=== PATIENT | female | born 1945 | race Caucasian/White ===

== ENCOUNTER 2019-07-14 07:52 | Outpatient (CLI) | payer MEDICARE, BC | END 2019-07-14 23:59 | disposition home or self-care (01) | LOC: CFH 07:52 | PROVIDERS: ATTEND Family Medicine | DX: N60.02 Solitary cyst of left breast (principal) | CPT/HCPCS: 76642; 77066 ==

== ENCOUNTER 2019-07-28 08:24 | Outpatient (CLI) | payer MEDICARE, BC ==
[2019-07-28] MEDS ORDERED: LIDOCAINE 1%-EPI 1:100K, 20ML ONE (09:00)
[2019-07-28] MEDS ORDERED: LIDOCAINE 1%, 20ML ONE (09:00)
[2019-07-28] MEDS ORDERED: SODIUM BICARBONATE 4.2%, 5ML ONE (09:00)
== END 2019-07-28 23:59 | disposition home or self-care (01) ==
LOC: CFH 08:24
PROVIDERS: ATTEND Family Medicine
DX: N63.11 Unspecified lump in the right breast, upper outer quadrant (principal); C50.911 Malignant neoplasm of unspecified site of right female breast; N60.02 Solitary cyst of left breast; Z17.0 Estrogen receptor positive status [ER+]
CPT/HCPCS: 19000; 19083; 76942; 77065; 88305; 88360; 88361; J3490; 19285

== ENCOUNTER 2019-08-24 12:41 | Outpatient (CLI) | payer MEDICARE, BC ==
[2019-08-24] MEDS ORDERED: FLUO10TA PO (13:17)
[2019-08-24] MEDS ORDERED: ATOR10TA9 PO (13:17)
[2019-08-24] MEDS ORDERED: METO-93 PO (13:17)
[2019-08-24] MEDS ORDERED: LOSA25TA25 PO (13:17)
[2019-08-24] MEDS ORDERED: ASPI-496 PO (13:17)
[2019-08-24 14:02] LABS: ALBUMIN 3.9 g/dL (3.4-5.0); ANION GAP 7 mmol/L (5-15); CHLORIDE 107 mmol/L (98-107)
[2019-08-24 14:06] LABS: ALANINE AMINOTRANSFERASE 23 U/L (12-78); ALKALINE PHOSPHATASE 125 U/L (45-117); BILIRUBIN,TOTAL 0.5 mg/dL (0.2-1.0); CREATININE 0.94 mg/dL (0.55-1.02); TOTAL PROTEIN 7.7 g/dL (6.4-8.2)
== END 2019-08-24 23:59 | disposition home or self-care (01) ==
LOC: STAR 12:41
PROVIDERS: ATTEND Surgery
DX: Z01.818 Encounter for other preprocedural examination (principal); C77.3 Secondary and unspecified malignant neoplasm of axilla and upper limb lymph nodes
CPT/HCPCS: 36415; 80053; 93005

== ENCOUNTER 2019-08-28 11:32 | Day surgery (SDC) | payer MEDICARE, BC ==
[~2019-08-28] VITALS: Ht 167.6 cm; Wt 114.3 kg
[~2019-08-28 11:32] MED LIST: ASPI-496 PO; ATOR10TA9 PO; BUPIVACAINE/PF 0.5% ONE; EPINEPHRINE 1 MG/ML, 1ML ONE; FLUO10TA PO; ISOSULFAN BLUE 10 MG/ML, 5ML IV ONE; LOSA25TA25 PO; METO-93 PO
[2019-08-28] MEDS ORDERED: LACTATED RINGERS 1,000 ML IV SCH (12:11)
[2019-08-28 12:16] VITALS: BP 147/88
[2019-08-28] MEDS ORDERED: SCOPOLAMINE PATCH, 1.5MG PATCH.TD72 TD ONE (12:30)
[2019-08-28] MEDS ORDERED: ACETAMINOPHEN 500 MG TABLET PO ONE (12:30)
[2019-08-28] MEDS ORDERED: MIDAZOLAM 1 MG/ML, 2ML ONE (12:49)
[2019-08-28] MEDS ORDERED: FENTANYL PF 250 MCG/5ML ONE (12:50)
[2019-08-28] MEDS ORDERED: PROPOFOL 10 MG/ML, 20ML ONE (12:51)
[2019-08-28] MEDS ORDERED: DEXAMETHASONE 4 MG/ML, 1ML ONE ×2 (12:51→13:20)
[2019-08-28] MEDS ORDERED: ROCURONIUM 10MG/ML,5ML ONE (12:51)
[2019-08-28] MEDS ORDERED: CEFAZOLIN 1,000 MG ONE ×2 (12:51→13:20)
[2019-08-28] MEDS ORDERED: SUCCINYLCHOLINE 20 MG/ML, 10ML ONE (12:53)
[2019-08-28] MEDS ORDERED: DIPHENHYDRAMINE 50 MG/ML, 1ML ONE ×2 (12:53→13:44)
[2019-08-28] MEDS ORDERED: SUGAMMADEX 200 MG/2 ML IVPush ONE (13:20)
[2019-08-28] MEDS ORDERED: OXYcodone 5 MG/5 ML ORAL.SOL UDC PO PRN (13:30)
[2019-08-28] MEDS ORDERED: FENTANYL PF 100 MCG/2ML IV PRN (13:30)
[2019-08-28] MEDS ORDERED: DIAZEPAM 5 MG/ML, 2ML IVPush PRN (13:30)
[2019-08-28] MEDS ORDERED: HYDROmorphone 2 MG/ML, 1ML IVPush PRN (13:30)
[2019-08-28] MEDS ORDERED: ALBUTEROL SULFATE 2.5 MG/3 ML NPPB PRN (13:30)
[2019-08-28] MEDS ORDERED: ONDANSETRON ODT 8 MG PO PRN (13:30)
[2019-08-28] MEDS ORDERED: HALOPERIDOL 5 MG/ML IV PRN (13:30)
[2019-08-28] MEDS ORDERED: LABETALOL 5MG/ML, 20ML IV PRN (13:30)
[2019-08-28] MEDS ORDERED: EPHEDRINE 50 MG/ML, 1ML IVPush PRN (13:30)
[2019-08-28] MEDS ORDERED: PROMETHAZINE 25 MG/ML, 1ML IV PRN (13:30)
[2019-08-28] MEDS ORDERED: ONDANSETRON 2MG/ML, 2ML IV PRN (13:30)
[2019-08-28] MEDS ORDERED: PROMETHAZINE 12.5 MG SUPP PR PRN (13:30)
[2019-08-28] MEDS ORDERED: MEPERIDINE/PF 25MG/ML,1ML IVPush PRN (13:30)
[2019-08-28] MEDS ORDERED: hydrALAzine 20 MG/ML, 1ML IV PRN (13:30)
[2019-08-28] MEDS ORDERED: MIDAZOLAM 1 MG/ML, 2ML IV PRN (13:30)
[2019-08-28] MEDS ORDERED: ONDANSETRON 2MG/ML, 2ML ONE (13:31)
== END 2019-08-28 16:50 | disposition home or self-care (01) ==
LOC: SDC 11:32 → EDSTATUS 14:30 → OUT 16:50
PROVIDERS: ATTEND Surgery
DX: C50.411 Malignant neoplasm of upper-outer quadrant of right female breast (principal); E66.9 Obesity, unspecified; E78.5 Hyperlipidemia, unspecified; I10 Essential (primary) hypertension; Z79.890 Hormone replacement therapy; Z98.890 Other specified postprocedural states; Z17.0 Estrogen receptor positive status [ER+]; Z68.41 Body mass index [BMI] 40.0-44.9, adult; Z88.8 Allergy status to other drugs, medicaments and biological substances
CPT/HCPCS: 19301; 38525; 38792; 76098; 88307; 88329; A9541; J0171; J0330; J0690; J1100; J1200; J2250; J2405; J2704; J3010

== ENCOUNTER → 2019-09-15 | Outpatient (CLI) | payer MEDICARE, BC ==
[~2019-09-15] MED LIST changes: -BUPIVACAINE/PF 0.5% ONE; -EPINEPHRINE 1 MG/ML, 1ML ONE; -ISOSULFAN BLUE 10 MG/ML, 5ML IV ONE
== END | disposition home or self-care (01) ==
LOC: ROC 07:58
PROVIDERS: ATTEND Radiology Radiation Oncology
DX: Z08 Encounter for follow-up examination after completed treatment for malignant neoplasm (principal); C50.411 Malignant neoplasm of upper-outer quadrant of right female breast; I10 Essential (primary) hypertension; E78.5 Hyperlipidemia, unspecified; E66.9 Obesity, unspecified; Z17.0 Estrogen receptor positive status [ER+]
CPT/HCPCS: G0463

== ENCOUNTER 2019-12-13 08:14 | Outpatient (CLI) | payer MEDICARE, BC | END 2019-12-13 23:59 | disposition home or self-care (01) | LOC: ROC 08:14 | PROVIDERS: ATTEND Radiology Radiation Oncology | DX: Z08 Encounter for follow-up examination after completed treatment for malignant neoplasm (principal); C50.411 Malignant neoplasm of upper-outer quadrant of right female breast; E78.5 Hyperlipidemia, unspecified; I10 Essential (primary) hypertension; Z17.0 Estrogen receptor positive status [ER+] | CPT/HCPCS: G0463 ==

== ENCOUNTER → 2020-02-26 | Outpatient (CLI) | payer MEDICARE, BC | END | disposition home or self-care (01) | LOC: CFH 12:00 | PROVIDERS: ATTEND Internal Medicine Hematology & Oncology | DX: C50.411 Malignant neoplasm of upper-outer quadrant of right female breast (principal) | CPT/HCPCS: 77066; G0279 ==

== ENCOUNTER 2021-03-05 12:31 | Outpatient (CLI) | payer MEDICARE, BC | END 2021-03-05 23:59 | disposition home or self-care (01) | LOC: CFH 12:31 | PROVIDERS: ATTEND Internal Medicine Hematology & Oncology | DX: C50.411 Malignant neoplasm of upper-outer quadrant of right female breast (principal) | CPT/HCPCS: 77062; 77063; 77066; G0279 ==

== ENCOUNTER 2021-04-03 10:22 | Outpatient (CLI) | payer MEDICARE, BC ==
[2021-04-03 11:06] LABS: ALBUMIN 3.6 g/dL (3.4-5.0); ANION GAP 4 mmol/L (5-15); CALCIUM 10.2 mg/dL (8.5-10.1); CHLORIDE 106 mmol/L (98-107)
[2021-04-03 11:09] LABS: ALANINE AMINOTRANSFERASE 23 U/L (12-78); ALKALINE PHOSPHATASE 124 U/L (45-117); BILIRUBIN,TOTAL 0.7 mg/dL (0.2-1.0); CHOL/HDL RATIO 2.9; CHOLESTEROL, TOTAL 160 mg/dL (140-239); CREATININE 0.75 mg/dL (0.55-1.02); HDL CHOL % 34 % (28-40); HDL CHOLESTEROL (DIRECT) 55 mg/dL (40-60); LDL CHOLESTEROL,CALCULATED 89 mg/dL (54-169); LDL/HDL RATIO 1.6 (0.5-3.0); TOTAL PROTEIN 7.1 g/dL (6.4-8.2); TRIGLYCERIDES 78 mg/dL (50-200); VLDL CHOLESTEROL 16 mg/dL (0-25)
== END 2021-04-03 23:59 | disposition home or self-care (01) ==
LOC: LAB 10:22
PROVIDERS: ATTEND Family Medicine
DX: I10 Essential (primary) hypertension (principal)
CPT/HCPCS: 36415; 80053; 80061; 82043